=== PATIENT | male | born 1995 | race Caucasian/White ===

== ENCOUNTER 2018-07-04 07:40 | Emergency (ER) | payer MEDICAID ==
[~2018-07-04] VITALS: Ht 182.9 cm; Wt 86.2 kg
[2018-07-04] MEDS ORDERED: Thiamine HCl 100 MG in D5W 55 ML IVPB STA (07:48)
--- NOTE | 2018-07-04 07:57 | Emergency Room Report ---
History of Present Illness General Chief Complaint: Alcohol Intoxication Source: Patient, EMS Present Illness HPI Patient brought by EMS. Allegedly he's been drinking alcohol. He admits to this. He states that he's "fine". He has some scrapes on his face that it happened several days ago. He states he's had seizures in the past but denies seizures recently. Aside from that he refuses to answer questions at this time. Allergies: Coded Allergies: No Known Allergies (Unverified , 07/04/18) Patient History Limited by: medical condition - Acute intoxication Past Medical History: see triage record Social History: Reports: alcohol use Reviewed Nursing Documentation: PMH: Agreed; PSxH: Agreed Nursing Documentation-PMH Past Medical History: No History, Except For History Of Psychiatric Problem: No - alcohol abuse Review of Systems All Other Systems: limited Physical Exam Vital Signs Date Time Temp Pulse Resp B/P (MAP) Pulse Ox O2 Delivery O2 Flow Rate FiO2 07/04/18 07:38 97.5 84 16 143/92 98 Room Air General Appearance: lethargic, other - GCS 14 Head: normocephalic, other - Facial abrasions Eyes: bilateral eye other - Nystagmus ENT: moist mucus membranes, other - apthous ulcer lower lip Neck: supple, no bony tend Respiratory: lungs clear, normal breath sounds Cardiovascular #1: normal inspection, regular rate, rhythm Cardiovascular #2: 2+ radial (R) Gastrointestinal: non tender, soft, decreased bowel sounds, scaphoid Genitourinary: no CVA tenderness Neurologic: responsive, DTRs symmetric, sensory intact, other - And ataxic, nystagmus, s Psychiatric: other - Lethargic Skin: abrasions - Medical Decision Making Diagnostic Impression: Primary Impression: Acute alcoholic intoxication Qualified Codes: F10.929 - Alcohol use, unspecified with intoxication, unspecified Additional Impression: Aphthous ulcer ER Course Patient presents with alleged alcohol intoxication. Differential includes alcohol ingestion, other drug ingestion, left right abnormality amongst others. The facial trauma is old. Aside from nystagmus and ataxia the patient has a nonfocal neurologic exam. CT is not indicated at this time. The patient will be evaluated with labs. The patient be treated with IV hydration and a dose of thiamine IV. Labs with elevated BAL. Tox + for benzos. Slightly elevated CK. After observation and hydration, patient ambulatory. Denies SI. States problem with alcohol and had sponsor. Poor social situation at the moment, but knows how to find a place to stay. Denies pain, NVD, PADRON, dizziness, back or extremity pain, dysuria, cough, dyspnea. Patient stable for outpatient observation and treatment. Laboratory Tests Test 07/04/18 08:00 White Blood Count 8.8 K/UL (4.8-10.8) Red Blood Count 4.96 M/UL (4.70-6.10) Hemoglobin 15.5 G/DL (14.2-18.0) Hematocrit 45.6 % (42.0-52.0) Mean Corpuscular Volume 92 FL (80-99) Mean Corpuscular Hemoglobin 31.2 PG (27.0-31.0) H Mean Corpuscular Hemoglobin Concent 33.9 G/DL (32.0-36.0) Red Cell Distribution Width 12.7 % (11.6-14.8) Platelet Count 320 K/UL (150-450) Mean Platelet Volume 6.0 FL (6.5-10.1) L Neutrophils (%) (Auto) 56.1 % (45.0-75.0) Lymphocytes (%) (Auto) 34.8 % (20.0-45.0) Monocytes (%) (Auto) 6.6 % (1.0-10.0) Eosinophils (%) (Auto) 1.3 % (0.0-3.0) Basophils (%) (Auto) 1.2 % (0.0-2.0) Urine Color Pale yellow Urine Appearance Clear Urine pH 6.5 (4.5-8.0) Urine Specific [place] 1.005 (1.005-1.035) Urine Protein Negative (NEGATIVE) Urine Glucose (UA) Negative (NEGATIVE) Urine Ketones Negative (NEGATIVE) Urine Blood Negative (NEGATIVE) Urine Nitrite Negative (NEGATIVE) Urine Bilirubin Negative (NEGATIVE) Urine Urobilinogen Normal MG/DL (0.0-1.0) Urine Leukocyte Esterase Negative (NEGATIVE) Sodium Level 145 MMOL/L (136-145) Potassium Level 3.7 MMOL/L (3.5-5.1) Chloride Level 106 MMOL/L (98-107) Carbon Dioxide Level 28 MMOL/L (21-32) Anion Gap 12 mmol/L (5-15) Blood Urea Nitrogen 7 mg/dL (7-18) Creatinine 0.9 MG/DL (0.55-1.30) Estimate Glomerular Filtration Rate > 60 mL/min (>60) Glucose Level 90 MG/DL (74-106) Calcium Level 8.3 MG/DL (8.5-10.1) L Total Bilirubin 0.3 MG/DL (0.2-1.0) Aspartate Amino Transferase (AST) 69 U/L (15-37) H Alanine Aminotransferase (ALT) 40 U/L (12-78) Alkaline Phosphatase 97 U/L (46-116) Total Creatine Kinase 555 U/L (26-308) H Total Protein 7.7 G/DL (6.4-8.2) Albumin 3.4 G/DL (3.4-5.0) Globulin 4.3 g/dL Albumin/Globulin Ratio 0.8 (1.0-2.7) L Salicylates Level 2.3 ug/mL (2.8-20) L Urine Opiates Screen Negative (NEGATIVE) Acetaminophen Level < 2 MCG/ML (10-30) L Urine Barbiturates Screen Negative (NEGATIVE) Phencyclidine (PCP) Screen Negative (NEGATIVE) Urine Amphetamines Screen Negative (NEGATIVE) Urine Benzodiazepines Screen Positive (NEGATIVE) H Urine Cocaine Screen Negative (NEGATIVE) Urine Marijuana (THC) Screen Negative (NEGATIVE) Serum Alcohol 456 mg/dL Last Vital Signs Date Time Temp Pulse Resp B/P (MAP) Pulse Ox O2 Delivery O2 Flow Rate FiO2 07/04/18 15:13 98.4 78 22 130/76 100 Room Air Status: improved Disposition: HOME, SELF-CARE Condition: Improved Jimmy Saez MD Jul 04, 2018 07:57
[2018-07-04] MEDS ORDERED: Bacitracin Oint UD TOPIC ONE (08:00)
[2018-07-04 08:26] LABS: APPEARANCE,URINE CLEAR; BILIRUBIN, URINE NEGATIVE (NEGATIVE); COLOR,URINE PALE YELLOW; GLUCOSE, URINE (UA) NEGATIVE (NEGATIVE); KETONES,URINE NEGATIVE (NEGATIVE); LEUKOCYTE ESTERASE ,URINE NEGATIVE (NEGATIVE); NITRITE,URINE NEGATIVE (NEGATIVE); PH,URINE 6.5 (4.5-8.0); PROTEIN,URINE NEGATIVE (NEGATIVE); UROBILINOGEN,URINE NORMAL MG/DL (0.0-1.0)
[2018-07-04 08:32] LABS: BASOPHILS % (AUTO) 1.2 % (0.0-2.0); EOSINOPHILS % (AUTO) 1.3 % (0.0-3.0); HEMATOCRIT 45.6 % (42.0-52.0); HEMOGLOBIN 15.5 G/DL (14.2-18.0); LYMPHOCYTES % (AUTO) 34.8 % (20.0-45.0); MEAN CORPUSCULAR VOLUME 92 FL (80-99); MONOCYTES % (AUTO) 6.6 % (1.0-10.0); NEUTROPHILS % (AUTO) 56.1 % (45.0-75.0); PLATELET COUNT 320 K/UL (150-450); RED BLOOD COUNT 4.96 M/UL (4.70-6.10); RED CELL DISTRIBUTION WIDTH 12.7 % (11.6-14.8); WHITE BLOOD COUNT 8.8 K/UL (4.8-10.8)
[2018-07-04 08:39] LABS: ANION GAP 12 mmol/L (5-15); BLOOD UREA NITROGEN 7 mg/dL (7-18); CALCIUM 8.3 MG/DL (8.5-10.1); CARBON DIOXIDE 28 MMOL/L (21-32); CHLORIDE 106 MMOL/L (98-107); CREATININE 0.9 MG/DL (0.55-1.30); POTASSIUM 3.7 MMOL/L (3.5-5.1); SODIUM 145 MMOL/L (136-145)
[2018-07-04 08:44] LABS: ALANINE AMINOTRANSFERASE 40 U/L (12-78); ALBUMIN 3.4 G/DL (3.4-5.0); ALBUMIN/GLOBULIN RATIO 0.8 (1.0-2.7); ALKALINE PHOSPHATASE 97 U/L (46-116); ASPARTATE AMINO TRANSFERASE 69 U/L (15-37); BILIRUBIN,TOTAL 0.3 MG/DL (0.2-1.0); CREATINE KINASE 555 U/L (26-308)
[2018-07-04 08:51] VITALS: BP 132/78
[2018-07-04 12:38] VITALS: BP 124/85
[2018-07-04 15:12] VITALS: BP 130/76
[2018-07-04 15:13] VITALS: BP 130/76
== END 2018-07-04 15:14 | disposition home or self-care (01) ==
LOC: EDBD 07:40 → EMR 08:33
DX: F10.129 Alcohol abuse with intoxication, unspecified (principal); K12.0 Recurrent oral aphthae
CPT/HCPCS: 36415; 80053; 80307; 80329; 81003; 82550; 85025; 96361; 96365; 99284

== ENCOUNTER 2018-07-04 19:13 | Emergency (ER) | payer MEDICAID ==
[~2018-07-04] VITALS: Ht 180.3 cm; Wt 79.4 kg
[2018-07-04 19:20] VITALS: BP 139/78
--- NOTE | 2018-07-04 21:02 | Emergency Room Report ---
History of Present Illness General Chief Complaint: Alcohol Intoxication Present Illness HPI 23 YO Male presents to the ED for acute alcohol intoxication. By standers called 911 when they saw pt. altered in a parking lot of [place] drinking wine. he was d/c earlier today after being evaluated for similar presentation. Pt. denies trauma or fall. HPI and ROS are limited at this time. pt. only verbalizes how much he needs to go the bathroom to urinate. Allergies: Coded Allergies: No Known Allergies (Unverified , 07/04/18) Patient History Past Medical History: see triage record Past Surgical History: none Pertinent Family History: none Reviewed Nursing Documentation: PMH: Agreed; PSxH: Agreed Review of Systems All Other Systems: limited Physical Exam Vital Signs Date Time Temp Pulse Resp B/P (MAP) Pulse Ox O2 Delivery O2 Flow Rate FiO2 07/04/18 19:13 97.9 18 18 139/78 98 Room Air Sp02 EP Interpretation: reviewed, normal General Appearance: no apparent distress, alert - alert and rambling, GCS 15, non-toxic Head: normocephalic, atraumatic - evidence of old abrasions on forehead and left side of face. Eyes: bilateral eye normal inspection, bilateral eye PERRL ENT: hearing grossly normal, normal voice Neck: full range of motion, no bony tend Respiratory: chest non-tender, lungs clear, normal breath sounds, speaking full sentences, other - no bruises or yee Cardiovascular #1: regular rate, rhythm Gastrointestinal: normal bowel sounds, non tender, soft, other - no abdominal bruising Musculoskeletal: back normal, normal range of motion, non-tender, other - pt. has staggered gait. Neurologic: alert, responsive, motor strength/tone normal, sensory intact, other - slurred words, grossly normal Psychiatric: judgement/insight normal Skin: normal color, no rash, warm/dry, well hydrated, other - abrasions of multiple sites, track yee on the bilateral a/c's , Medical Decision Making PA Attestation Dr. Huff is my supervising Physician whom patient management has been discussed with. Diagnostic Impression: Primary Impression: Acute alcoholic intoxication Qualified Codes: F10.929 - Alcohol use, unspecified with intoxication, unspecified ER Course Pt. presents to the ED intoxicated with alcohol, pt. is NAD, pt. is alert, no obvious signs of trauma, able to ambulate to chair. Ddx considered but are not limited to ETOH, Trauma, Syncope, dementia, OD Vital signs: are WNL, pt. is afebrile H&PE are most consistent with ETOH intoxication, pt. NAD, non-toxic in appearance,clinically inebriated ORDERS: CT Head: Unremarkable ED INTERVENTIONS: Observance while he detoxifies. Pt. was allowed to sleep/rest. DISCHARGE: At this time pt. is stable for d/c to home. Will provide printed patient care instructions, and any necessary prescriptions. Care plan and follow up instructions have been discussed with the patient prior to discharge. CT/MRI/US Diagnostic Results CT/MRI/US Diagnostic Results : Imaging Test Ordered: CT Head No Contrast Impression No evidence of acute fracture, hemorrhage, or intracranial process Per: official radiology report Last Vital Signs Date Time Temp Pulse Resp B/P (MAP) Pulse Ox O2 Delivery O2 Flow Rate FiO2 07/04/18 19:13 97.9 18 18 139/78 98 Room Air Signed Out To: Dr. Fowler Referrals: NOT CHOSEN IPA/,REFERRING (PCP) Gabi Lawton Jul 04, 2018 21:02
[2018-07-04 21:47] VITALS: BP 127/71
[2018-07-04 22:30] VITALS: BP 131/68
[2018-07-04 22:45] VITALS: BP 131/68
--- NOTE | 2018-07-05 09:14 | Diagnostic Imaging Report ---
Indication: Altered mental status Technique: Continuous helical CT scanning of the head was performed without intravenous contrast material. Axial and coronal 5 mm sections were generated. Radiation dose was minimized using automated exposure control Dose: Total Dose Length Product - DLP 2906.[address] Dose Index - CTDIvol(s) 70.38,70.38 mGy. Comparison: none Findings: The ventricular system is normal in size and configuration. There is no shift of midline structures. No abnormal extra-axial fluid collections are noted. There is no evidence of intracerebral bleeding. No other abnormal high or low density areas are noted within the brain. There is an air-fluid level in the right maxillary sinus. The mastoids are clear. The included orbits are unremarkable. The calvarium is intact. Gomez-white differentiation is preserved Impression: Normal CT scan of the head without contrast material. Incidental finding of right maxillary sinus acute sinusitis This agrees with the preliminary interpretation provided overnight by Dr. Spicer The CT scanner at [facility] is accredited by the [employer] and the scans are performed using protocols designed to limit radiation exposure to as low as reasonably achievable to attain images of sufficient resolution adequate for diagnostic evaluation.
== END 2018-07-04 22:45 | disposition left against medical advice (07) ==
LOC: EDBD 19:13 → EMR 20:30
DX: F10.129 Alcohol abuse with intoxication, unspecified (principal)
CPT/HCPCS: 70450; 96361; 96365; 99284

== ENCOUNTER 2019-10-21 12:55 | Emergency (ER) | payer MEDICAID, OTHER ==
[~2019-10-21] VITALS: Ht 185.4 cm; Wt 81.6 kg
[2019-10-21 13:01] VITALS: BP 140/80
--- NOTE | 2019-10-21 13:01 | NUR ---
ED Nurse Note: PT brought in by brooke from [place] [facility] for Seizure activity lasting about 5 min per bystander. pt denies any head injuiry. PT is alert x4. PT reports drinking alcohol. pt denies Hx of Seizure.
--- NOTE | 2019-10-21 13:10 | NUR ---
ED Nurse Note: X ray at bedside.
[2019-10-21] MEDS ORDERED: Ketorolac 30mg Inj IV ONE (13:15)
--- NOTE | 2019-10-21 13:27 | NUR ---
ED Nurse Note: went to CT
--- NOTE | 2019-10-21 13:29 | NUR ---
ED Nurse Note: urine and blood sample sent down to lab
--- NOTE | 2019-10-21 13:29 | Emergency Room Report ---
History of Present Illness General Chief Complaint: Seizure Source: Patient Present Illness HPI 24-year-old male who admits to having a drinking problem and drinks alcohol on daily basis brought in by paramedics post seizure. Patient reports that he himself does not recall having a seizure activity. Denies any history of seizures. Patient was seen at [facility] emergency department few days ago for similar complaint. Contusions noted on head. Patient reports a head CT was done at [facility] and within normal limits. Denies any drug use, reports that he also smokes tobacco on daily basis. [place] [address] Complains of abdominal pain after drinking a lot of alcohol. Complains of nausea vomiting as well as diarrhea. Denies any recent fall or injury. Denies chest pain, shortness of breath, palpitation, dizziness. Patient responds to questions. Appears to be stable with stable vital signs. Denies loss of urinary or bowel incontinence. Patient was found in the street after a seizure activity according to the paramedics. However the seizure was not observed. Patient reports that he drank a lot of alcohol last night. Paramedics also suspected methamphetamine use. Allergies: Coded Allergies: No Known Allergies (Unverified , 07/04/18) Patient History Past Medical History: see triage record Past Surgical History: unable to obtain Pertinent Family History: none Social History: Reports: alcohol use Immunizations: UTD Reviewed Nursing Documentation: PMH: Agreed; PSxH: Agreed Nursing Documentation-PMH Past Medical History: No History, Except For Review of Systems All Other Systems: negative except mentioned in HPI Physical Exam Vital Signs Date Time Temp Pulse Resp B/P (MAP) Pulse Ox O2 Delivery O2 Flow Rate FiO2 10/21/19 12:56 98.1 125 18 141/87 (105) 99 Room Air Sp02 EP Interpretation: reviewed, normal General Appearance: no apparent distress, alert, GCS 15, mild distress Head: other - Multiple ecchymosis and contusion noted billy-orbital and frontal lobe Eyes: bilateral eye normal inspection, bilateral eye PERRL ENT: hearing grossly normal, normal pharynx, no angioedema, normal voice Neck: full range of motion, supple, no meningismus, no bony tend, supple/symm/ no masses Respiratory: chest non-tender, lungs clear, normal breath sounds, no rhonchi, no retraction, no accessory muscle use, no wheezing, speaking full sentences Cardiovascular #1: normal peripheral pulses, regular rate, rhythm, no edema, no gallop, no JVD, no murmur, normal capillary refill Cardiovascular #2: 2+ carotid (R), 2+ carotid (L), 2+ radial (R), 2+ radial (L) Gastrointestinal: normal inspection, non tender, soft, no mass, no organomegaly , no peritonitis, no bruit, non-distended, no guarding, no hernia, no pulsatile mass, no rebound Rectal: deferred Genitourinary: no CVA tenderness Musculoskeletal: back normal, normal range of motion, no calf tenderness, pelvis stable Neurologic: alert, motor strength/tone normal, oriented, distal neuro normal, oriented x3, sensory intact, responsive, speech normal Psychiatric: judgement/insight normal, memory normal, mood/affect normal, no suicidal/homicidal ideation Skin: no rash, palpation normal, normal color Lymphatic: no adenopathy Medical Decision Making PA Attestation All my diagnosis and treatment plans were reviewed ad discussed with my supervising physician Dr. Fowler Diagnostic Impression: Primary Impression: Alcohol withdrawal Additional Impressions: Seizure disorder Methamphetamine abuse Fatty liver Encounter for smoking cessation counseling ER Course 24-year-old male who admits to having a drinking problem and drinks alcohol on daily basis brought in by paramedics post seizure. Patient reports that he himself does not recall having a seizure activity. Denies any history of seizures. Patient was seen at [facility] emergency department few days ago for similar complaint. Contusions noted on head. Patient reports a head CT was done at [facility] and within normal limits. Denies any drug use, reports that he also smokes tobacco on daily basis. [place] [address] Complains of abdominal pain after drinking a lot of alcohol. Complains of nausea vomiting as well as diarrhea. Denies any recent fall or injury. Denies chest pain, shortness of breath, palpitation, dizziness. Patient responds to questions. Appears to be stable with stable vital signs. Denies loss of urinary or bowel incontinence. Patient was found in the street after a seizure activity according to the paramedics. However the seizure was not observed. Patient reports that he drank a lot of alcohol last night. Paramedics also suspected methamphetamine use. Ddx considered but are not limited to: Dizziness due to alcohol intoxication, dizziness unspecified, dizziness due to head trauma, dizziness secondary to cardiac reasons, seizure tonic clonic Vital signs: are WNL, pt. is afebrile H&PE are most consistent with: Alcohol withdrawal, seizure secondary to alcohol , methamphetamine abuse, fatty liver ORDERS: Seizure orders, nicotine patch per patient request to stop smoking, Zofran, omeprazole ER intervention: NS bolus, Zofran, Pepcid, Toradol DISCHARGE: At this time pt. is stable for d/c to home. Will provide printed patient care instructions, and any necessary prescriptions. Care plan and follow up instructions have been discussed with the patient prior to discharge. Gave patient a list of facilities that he can fill for alcohol dependency and withdrawal. Also gave him a list of free clinics to establish a primary care doctor, follow-up with neurologist, at this time I do not believe the patient needs any seizure medication patient does not recall having any seizures and no one has ever observed his seizures and patient is going through withdrawal symptoms. However do follow-up with a neurologist. If worsening symptoms return to the emergency room. Avoid drinking alcohol EKG Diagnostic Results Rate: normal Rhythm: NSR ST Segments: no acute changes Other Impression No acute ST changes Chest X-Ray Diagnostic Results Chest X-Ray Diagnostic Results : Chest X-Ray Ordered: Yes # of Views/Limited/Complete: 1 View Indication: Other EP Interpretation: Yes PA Xray: Interpretation reviewed, by supervising MD, and agrees with findings. Interpretation: no consolidation, no effusion, no pneumothorax Impression: No acute disease Electronically Signed by: Tamela Umaña PA-C CT/MRI/US Diagnostic Results CT/MRI/US Diagnostic Results #1: Imaging Test Ordered: Head CT no contrast Impression No intracranial bleed, no skull fracture CT/MRI/US Diagnostic Results #2: Imaging Test Ordered: CT abdomen pelvis with contrast Impression Fatty liver, no other abnormalities Last Vital Signs Date Time Temp Pulse Resp B/P (MAP) Pulse Ox O2 Delivery O2 Flow Rate FiO2 10/21/19 12:56 98.1 125 18 141/87 (105) 99 Room Air Status: improved Disposition: HOME, SELF-CARE Condition: Stable Scripts Omeprazole (OMEPRAZOLE) 20 Mg Tablet. 20 MG ORAL DAILY, #30 TAB Prov: Tamela Pickett 10/21/19 Nicotine (NICOTINE PATCH) 1 Each Patch.dysq 1 EACH TD DAILY, #14 PATCH Prov: Tamela Pickett 10/21/19 Ondansetron (Zofran) 4 Mg Tablet 4 MG ORAL Q6H PRN for Nausea & Vomiting, #14 TAB Prov: Tamela Pickett 10/21/19 Patient Instructions: Alcohol Withdrawal, [id number], Amphetamine oral tablets, Fatty Liver, Seizure, Adult, Stimulant Use Disorder-Methamphetamines Additional Instructions: Take medication as directed, follow-up with your primary care provider, avoid drinking alcohol, increase oral hydration, if worsening symptoms return to the emergency room you need to be evaluated by a neurologist for seizure activities. Tamela Pickett Oct 21, 2019 13:29
--- NOTE | 2019-10-21 13:50 | NUR ---
ED Nurse Note: back from CT
[2019-10-21 14:16] LABS: BASOPHILS % (AUTO) 1.3 % (0.0-2.0); EOSINOPHILS % (AUTO) 0.2 % (0.0-3.0); HEMATOCRIT 42.7 % (42.0-52.0); HEMOGLOBIN 14.7 G/DL (14.2-18.0); LYMPHOCYTES % (AUTO) 14.8 % (20.0-45.0); MEAN CORPUSCULAR VOLUME 97 FL (80-99); MONOCYTES % (AUTO) 8.6 % (1.0-10.0); NEUTROPHILS % (AUTO) 75.1 % (45.0-75.0); PLATELET COUNT 254 K/UL (150-450); RED BLOOD COUNT 4.39 M/UL (4.70-6.10); RED CELL DISTRIBUTION WIDTH 14.4 % (11.6-14.8); WHITE BLOOD COUNT 5.6 K/UL (4.8-10.8)
--- NOTE | 2019-10-21 14:28 | Diagnostic Imaging Report ---
Indications: Seizure Technique: Spiral acquisitions obtained through the brain. Angled axial and coronal 5 x 5 mm slices were reconstructed. Total dose length product 1098 mGycm. CTDI vol(s) 53 mGy. Dose reduction achieved using automated exposure control Comparison: 07/04/2018 Findings: No acute intracranial hemorrhage or edema, mass effect, nor midline shift. Normal edmonds-white differentiation. Normal size ventricles and extra axial CSF spaces. Intact calvarium. The mastoids are clear. There is bilateral maxillary sinus opacification, more extensive than that seen previously although the diffusely demonstrated air-fluid level in the right maxillary sinus is no longer evident. Impression: Negative for acute intracranial bleed or mass effect Sinus disease The CT scanner at [facility] is accredited by the [employer] and the scans are performed using protocols designed to limit radiation exposure to as low as reasonably achievable to attain images of sufficient resolution adequate for diagnostic evaluation.
[2019-10-21 14:31] LABS: ANION GAP 15 mmol/L (5-15); BLOOD UREA NITROGEN 13 mg/dL (7-18); CARBON DIOXIDE 23 MMOL/L (21-32); CHLORIDE 105 MMOL/L (98-107); CREATININE 0.7 MG/DL (0.55-1.30); POTASSIUM 3.3 MMOL/L (3.5-5.1); SODIUM 143 MMOL/L (136-145)
[2019-10-21 14:34] LABS: COLOR,URINE YELLOW
[2019-10-21 14:35] LABS: APPEARANCE,URINE CLEAR; PH,URINE 6.5 (4.5-8.0)
[2019-10-21 14:36] LABS: BILIRUBIN, URINE NEGATIVE (NEGATIVE); GLUCOSE, URINE (UA) NEGATIVE (NEGATIVE); KETONES,URINE 1+ (NEGATIVE); LEUKOCYTE ESTERASE ,URINE 1+ (NEGATIVE); NITRITE,URINE NEGATIVE (NEGATIVE); PROTEIN,URINE 4+ (NEGATIVE); UROBILINOGEN,URINE 1 MG/DL (0.0-1.0)
[2019-10-21 14:44] LABS: ALANINE AMINOTRANSFERASE 97 U/L (12-78); ALBUMIN 3.5 G/DL (3.4-5.0); ALBUMIN/GLOBULIN RATIO 1.1 (1.0-2.7); ALKALINE PHOSPHATASE 90 U/L (46-116); ASPARTATE AMINO TRANSFERASE 131 U/L (15-37); BILIRUBIN,TOTAL 0.7 MG/DL (0.2-1.0)
--- NOTE | 2019-10-21 14:50 | Diagnostic Imaging Report ---
Indication: Chest pain Technique: One view of the chest Comparison: none Findings: There is atelectasis in the left perihilar region. The lungs and pleural spaces are otherwise clear. The heart size is normal Impression: Left perihilar atelectasis. No acute process otherwise
[2019-10-21] MEDS ORDERED: Omnipaque-300 100ml vial INJ PRN (15:00)
[2019-10-21 15:28] VITALS: BP 132/77
--- NOTE | 2019-10-21 16:00 | NUR ---
ED Nurse Note: went to CT abd
--- NOTE | 2019-10-21 16:20 | NUR ---
ED Nurse Note: Back from CT
--- NOTE | 2019-10-21 16:48 | Diagnostic Imaging Report ---
Clinical Indication: Abdominal pain, nausea, vomiting, diarrhea Technique: No oral contrast utilized, per emergency room physician request IV administration nonionic contrast. Venous phase spiral acquisition obtained through the abdomen and pelvis. Multiplanar reconstructions were generated. Total dose length product 783 mGycm. CTDIvol(s) 13 mGy. Dose reduction achieved using automated exposure control Comparison: none Findings: Lack of enteric contrast limits assessment of the GI tract. The appendix is normal. No small bowel distention. No free or loculated intraperitoneal gas or fluid is evident. The distal esophagus, stomach, duodenum are unremarkable. The liver is diffusely hypoattenuating, consistent with fatty change. It is also somewhat enlarged. No focal abnormality. The gallbladder, bile ducts, pancreas, spleen, adrenals, kidneys are unremarkable. No pelvic mass or adenopathy. No retroperitoneal or mesenteric mass or adenopathy. The included lung bases are clear. The bones are unremarkable. Impression: Limited assessment of the GI tract, due to lack of enteric contrast administration No acute abnormality Enlarged fatty liver The CT scanner at [facility] is accredited by the [employer] and the scans are performed using protocols designed to limit radiation exposure to as low as reasonably achievable to attain images of sufficient resolution adequate for diagnostic evaluation.
[2019-10-21] MEDS ORDERED: ZOFRAN4 M1 ORAL (17:01)
[2019-10-21] MEDS ORDERED: OMEPRAZOLE20 M3 ORAL (17:01)
[2019-10-21] MEDS ORDERED: NICOTINE PATCH1 EAC5 TD (17:01)
[2019-10-21 17:15] VITALS: BP 128/80
--- NOTE | 2019-10-21 17:15 | NUR ---
ER DISCHARGE NOTE: Patient is cleared to be discharged per ERMD, pt is aox4, on room air, with stable vital signs. pt was given dc and prescription instructions, pt was able to verbalize understanding, pt id band and iv site removed without complications. pt is able to ambulate with steady gait. pt took all belongings.
== END 2019-10-21 17:15 | disposition home or self-care (01) ==
LOC: EDBD 12:55 → EMR 13:40
DX: G40.909 Epilepsy, unspecified, not intractable, without status epilepticus (principal); F10.239 Alcohol dependence with withdrawal, unspecified; F15.10 Other stimulant abuse, uncomplicated; K76.0 Fatty (change of) liver, not elsewhere classified
CPT/HCPCS: 36415; 70450; 71045; 74177; 80053; 80156; 80164; 80307; 81003; 84484; 85025; 93005; 96361; 96374; 96375; G0480; J1885; J2405; J7030; Q9967; S0028; Z7502; 99284